=== PATIENT | female | born 2000 | race Caucasian/White ===

== ENCOUNTER 2023-04-18 10:42 | Emergency (ER) | payer OTHER, SELFPAY ==
[2023-04-18 10:48] VITALS: BP 145/92; PULSE 87; RESP 16; TEMP 36.6; O2SAT 97; BMI 33.2
--- NOTE | 2023-04-18 11:05 | ED.BACK1 ---
HPI - Back Pain/Injury General Chief Complaint: Back Pain/Injury Stated Complaint: BACK PAIN Time Seen by Provider: 04/18/23 11:00 Source: patient Mode of arrival: walk-in Limitations: no limitations History of Present Illness HPI Narrative: patient's here complaining of right back pain. It's actually at the lower right posterior rib border. She is in urgent care about 45 days ago with an upper respiratory infection. She's had a lot of coughing. Today she heard a popping sensation when she coughed. She's not coughed up any bloody sputum or. Sputum. She is not running a fever. They did put her on medications. She has no history of severe recurrent asthma or pulmonary disease. They did give her bronchodilator. They did not do a chest x-ray. She is not had any urinary symptoms or blood in her urine. Movement makes it worse and taking a deep breath makes it worse. The discomfort is in her right posterior flank area. 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 She does appear to be uncomfortable. Movement deftly makes her pain worse. No hypoxemia or tachycardia or tachypnea. Her skin integument shows good hydration status no pallor or cyanosis no scleral icterus. ENT shows no rhinitis or pharyngitis. There is no conjunctivitis. Her chest does not show any evidence of bruising no evidence of shingles or skin rash. There is no paradoxical movement in the ribs. She does not have rales or rhonchi. Breath sounds are normal with no bronchial spasm. It is uncomfortable in the right lower parathoracic area T11-T12 in the posterior lateral area of the rib. Heart sounds are normal. Extremities show no evidence of edema. Constitutional Vital Signs, click to edit/add: Last Vital Signs Temp 98 F 04/18/23 10:48 Pulse 87 04/18/23 10:48 Resp 16 04/18/23 10:48 BP 145/92 H 04/18/23 10:48 Pulse Ox 97 04/18/23 10:48 O2 Del Method Room Air 04/18/23 10:48 Course Vital Signs Vital signs: Vital Signs Temperature 98 F 04/18/23 10:48 Pulse Rate 87 04/18/23 10:48 Respiratory Rate 16 04/18/23 10:48 Blood Pressure 145/92 H 04/18/23 10:48 Pulse Oximetry 97 04/18/23 10:48 Oxygen Delivery Method Room Air 04/18/23 10:48 Temperature 98 F 04/18/23 10:48 Pulse Rate 87 04/18/23 10:48 Respiratory Rate 16 04/18/23 10:48 Blood Pressure 145/92 H 04/18/23 10:48 Pulse Oximetry 97 04/18/23 10:48 Oxygen Delivery Method Room Air 04/18/23 10:48 MDM - Back Pain/Injury MDM Narrative Medical decision making narrative: patient's chest x-ray was negative for pneumonia pneumothorax or fracture rib. I believe this is more musculoskeletal type problem. She'll be placed on Toradol. I do not believe she has deep vein thrombosis or PE with negative risk factors. Discharge Plan Discharge Chief Complaint: Back Pain/Injury Clinical Impression: Strain of lumbar region Patient Disposition: Home, Self-Care Time of Disposition Decision: 11:47 Additional Instructions: warm compresses for thirty minutes only/Toradol for pain?finish up her steroids antibiotiics and bronchodilators Stand Alone Forms: Portal Instructions Referrals: Physician,Non-Staff, MD [Primary Care Provider] - 1 week
--- NOTE | 2023-04-18 11:06 | XR_ITS ---
[facility] [id number] Patient Name: KAJAL TOBAR MRN: [id number] date: 2000 Sex: F Assigned Patient Location: ER Current Patient Location: ER Accession/Order Number: [id number] Exam Date: 04/18/2023 11:08 Report Date: 04/18/2023 11:30 At the request of: REJI LAWRENCE Procedure: XR chest 2V EXAM: XR chest 2V HISTORY: cough/rt basilar rib pain COMPARISON: None TECHNIQUE: PA and lateral views of the chest were obtained. FINDINGS: Heart and mediastinal contours are unremarkable in appearance. No acute infiltrate or consolidations are seen. No obvious pneumothorax. Mild convexity of the dorsal spine to the right. No obvious displaced or deforming rib fracture. XR/XR chest 2V IMPRESSION: No acute process seen in the chest. Follow-up as needed. Electronically authenticated by: ELY GRAVES Date: 04/18/2023 11:30
[2023-04-18] MEDS: KETOROLAC TROMETHAMINE 10 MG TABLET 20 MG PO (12:24)
== END 2023-04-18 12:27 | disposition home or self-care (01) ==
PROVIDERS: Emergency Provider Emergency Medicine Emergency Medical Services
DX: S39.012A Strain of muscle, fascia and tendon of lower back, initial encounter (principal); X50.9XXA Other and unspecified overexertion or strenuous movements or postures, initial encounter
CPT/HCPCS: 71046; 99283